=== PATIENT | female | born 1980 | race Caucasian/White ===

== ENCOUNTER 2017-09-13 15:43 | Emergency (ER) | payer OTHER ==
[~2017-09-13] VITALS: Ht 152.4 cm; Wt 69.4 kg
--- OUTSIDE RECORDS SUMMARY | ~2017-09-13 | XMS | Clinical Summary ---
Demographics + + + | Address | [address] | | | [place] [address] | + + + | Home Phone | | + + + | Preferred Language | Unknown | + + + | Marital Status | Single | + + + | Rastafari Affiliation | Unknown | + + + | Race | Unknown | + + + | Ethnic Group | Unknown | + + + Author + + + | Author | [facility] | | | and [place] | + + + | Organization | [facility] | | | and [place] | + + + | Address | Unknown | + + + | Phone | Unavailable | + + + Support + + +---------+ + | Name | Relationship | Address | Phone | + + +---------+ + | ASHLEY COOPER | ECON | Unknown | | + + +---------+ + Care Team Providers + +------+ + | Care Soft Iron Inspector Name | Role | Phone | + +------+ + PP | Unavailable | + +------+ + Allergies Not on File Current Medications Not on file Active Problems Not on file Social History + +-------+ +--------+------+ | Tobacco Use | Types | Packs/Day | Years | Date | | | | | Used | | + +-------+ +--------+------+ | Never Assessed | | | | | + +-------+ +--------+------+ + + + | Sex Assigned at | Date Recorded | | | | + + + | Not on file | | + + + Plan of Treatment + + + + + | Health Maintenance | Due Date | Last Done | Comments | + + + + + | Vaccine: | | | | | Dtap/Tdap/Td (1 - | 8 | | | | Tdap) | | | | + + + + + | CERVICAL CANCER | | | | | SCREENING (PAP EVERY | 0 | | | | 3 YEARS 21-64 ) | | | | + + + + + | Vaccine: Influenza | | | | | (Season Ended) | 8 | | | + + + + + Results Not on filefrom Last 3 Months"
--- OUTSIDE RECORDS SUMMARY | ~2017-09-13 | XMS | Clinical Summary ---
Demographics + + + | Address | [address] | | | [place] [address] | + + + | Home Phone | | + + + | Preferred Language | Unknown | + + + | Marital Status | Single | + + + | Methodist Affiliation | Unknown | + + + | Race | Unknown | + + + | Ethnic Group | Unknown | + + + Author + + + | Author | [facility] | | | and [place] | + + + | Organization | [facility] | | | and [place] | [...] Team Providers + +------+ + | Care Image Consultant Name | Role | Phone | + [...]
[~2017-09-13 15:43] MED LIST: PHENTERMINE HCL30 MG PO
[2017-09-13] MEDS ORDERED: PHENTERMINE H37.5 M1 PO (15:54)
--- NOTE | 2017-09-13 18:10 | EKG ---
[facility] [address] [place], [place] [address] Signed Sinus tachycardia Otherwise normal ECG Confirmed by JOS SCHOFIELD MD ([id number]) on 09/13/2017 6:09:52 PM Electronically Signed By: JOS SCHOFIELD MD 09/13/17 1810 PATIENT NAME: SALOMON CALIX [place] DELIA Electrocardiogram DATE OF : 76 PHYSICIAN: JOS SCHOFIELD MD REPORT #: [id number] REPORT IS CONFIDENTIAL AND NOT TO BE RELEASED WITHOUT AUTHORIZATION
== END 2017-09-13 17:47 | disposition home or self-care (01) ==
LOC: ED 15:43
DX: E86.0 Dehydration (principal); R00.0 Tachycardia, unspecified; F17.200 Nicotine dependence, unspecified, uncomplicated; Z91.018 Allergy to other foods; Z88.5 Allergy status to narcotic agent; Z79.899 Other long term (current) drug therapy
CPT/HCPCS: 71045; 80053; 84443; 84703; 85025; 85379; 93005; 93010; 96360; 99284; J7030

== ENCOUNTER 2020-04-01 07:40 | Day surgery (SDC) | payer OTHER ==
[~2020-04-01] VITALS: Ht 152.4 cm; Wt 73.0 kg
[~2020-04-01 07:40] MED LIST changes: +PHENTERMINE H37.5 M1 PO
[2020-04-01] MEDS ORDERED: VITAMIN D21250 MCG (07:53)
--- NOTE | 2020-04-01 10:31 | OR ---
[facility] [address] [place], [place] [address] Signed DATE OF OPERATION: 04/01/2020 SURGEON: Sue Bush MD PREOPERATIVE DIAGNOSIS: Chronic diarrhea. POSTOPERATIVE DIAGNOSIS: Minimal sigmoid diverticulosis. PROCEDURE: Colonoscopy with random cold biopsies. ESTIMATED BLOOD LOSS: None. 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 Apparently, she is headed for hysterectomy soon. She has been describing diarrhea at least 11 years now since her son was born. She said the stool is generally loose, but it can be watery at times. She talks about pain deep in her pelvis. The pain is intermittent. The blood work and her stool studies have all come back negative with her primary care provider. She has been through a recent pelvic exam as well as a pelvic ultrasound. She said they were fine. In the end, there were some concerns she could have irritable bowel syndrome. There was also question whether or not she might have diverticulitis. Consequently, she was asked to see me for a colonoscopy. She told me there is no family history of colon cancer or polyps. I had met with Monalisa in the office and I gave her a pamphlet on colonoscopy. We had discussed the nature of the test along with the risks including, but not limited to gas bloating, crampy abdominal pain, bleeding, perforation requiring surgery, and missed diagnosis. We also discussed the need for IV conscious sedation. She had expressed understanding and wished to proceed. PROCEDURE NOTE: Monalisa was taken into our endoscopy suite and placed in the left lateral decubitus position. She was given a total of 7 mg of Versed and 125 mcg of fentanyl. A digital rectal exam was performed and this was unremarkable. The adult colonoscope was introduced and advanced all around into the cecum under direct visualization of camera without difficulty. We could easily see the appendiceal orifice and the ileocecal valve. Her prep was quite excellent. She had no inflammatory changes throughout her Electronically Signed By: SUE BUSH MD 04/01/20 1031 PATIENT NAME: MONALISA BARILLAS OPERATIVE REPORT DATE OF : 76 REPORT #: [id number] PHYSICIAN: SUE BUSH MD PCP: NACHO NOBLES MD REPORT IS CONFIDENTIAL AND NOT TO BE RELEASED WITHOUT AUTHORIZATION [address] [address] Signed entire colon. There were no polyps. We took several random biopsies throughout the colon for pathologic review due the history of diarrhea. She also has some diverticula in the sigmoid colon. They were moderate in size, few in number, and scattered about. The rectum itself was unremarkable. Upon retroflexion of the scope, there was no additional pathology noted above the anal canal. After this, the gas was suctioned out and colonoscope removed. Monalisa tolerated the procedure quite well. RECOMMENDATIONS: I will see Monalisa back in my office in 7 to 14 days to review her biopsy results. Sue Bush MD ALB/MODL /[id number] cc: MD Deyanira Holguin MD Russell Barr Harrison, MD Copies: SUE BUSH MD, PATRICIA J MD HARRISON, RUSSELL BARR MD ~ Electronically Signed By: SUE BUSH MD 04/01/20 1031 PATIENT NAME: MONALISA BARILLAS [place] DELIA OPERATIVE REPORT DATE OF : 76 REPORT #: [id number] PHYSICIAN: SUE BUSH MD PCP: NACHO NOBLES MD REPORT IS CONFIDENTIAL AND NOT TO BE RELEASED WITHOUT AUTHORIZATION
--- NOTE | 2020-04-01 10:49 | NUR ---
PT ALERT, ORIENTED AND HERE FOR HER FIRST SCOPE. PT DEALT WITH PREP WELL, HOPES TODAY WILL BE PRODUCTIVE FOR HER HEALTHCARE. ALL QUESTIONS ASKED ANSWERED, PT REQUESTED PRAYER, WILL FOLLOW
--- NOTE | 2020-04-01 12:13 | NUR ---
04/01/20 1213 Griffith,Shital Godinez 0940: PATIENT ARRIVED TO PACU AWAKE AND ASKING QUESTIONS. DENIES PAIN. 1000: DISCHARGE INSTRUCTIONS GIVEN TO PATIENT. ASSISTED PATIENT TO SIT AT BEDSIDE. IV DC'D WNL. TIP INTACT. DRESSING APPLIED. STAND BY ASSIST WHILE PATIENT STOOD AT BEDSIDE. NO C/O DIZZINESS. PATIENT GETTING DRESSED. 1020: PATIENT DISCHARGED TO HOME VIA WHEELCHAIR WITH .
--- NOTE | 2020-04-05 16:48 | PATH ---
[facility] [address] [place], [place] [address] Signed SPECIMEN(S): A COLON BIOPSY SPECIMEN SOURCE: A. COLON BIOPSY CLINICAL HISTORY: Pre-op: Diarrhea. Post-op: Diverticulosis. MICROSCOPIC DESCRIPTION: Histologic sections of all submitted blocks are examined by light microscopy. These findings, together with the gross examination, support the pathologic diagnosis. FINAL PATHOLOGIC DIAGNOSIS: Colon, biopsy: - Fragments of colonic mucosa with no histopathologic abnormality. - Negative for active, chronic, or microscopic colitis. - Negative for dysplasia or malignancy. NAL:cml:C2NR GROSS DESCRIPTION: The specimen, labeled "Monalisa Blas, #1," and designated on the requisition "colon biopsy random," is received in formalin and consists of three cuevas soft tissue fragments that measure 0.4-0.5 cm in greatest dimension. The specimen is entirely submitted in cassette (A1). FB (under the direct supervision of a pathologist) The Gross Description was prepared using a voice recognition system. The report was reviewed for accuracy; however, sound-alike word errors, addition and/or deletions may occur. If there is any question about this report, please contact Client Services. PERFORMING LABORATORY: The technical component was performed by [facility], [address] [place] [id number] (Director Dietetics Department: Blanka Moura MD; CLIA# [id number]). [facility], [address] [address] (CLIA# [id number]). Diagnostician: Debi Moreno MD Pathologist Electronically Signed 04/05/2020 PATIENT NAME: MONALISA BARILLAS PATHOLOGY DATE OF : 76 REPORT #: [id number] PHYSICIAN: [facility] PCP: NACHO NOBLES MD REPORT IS CONFIDENTIAL AND NOT TO BE RELEASED WITHOUT AUTHORIZATION [address] [address] Signed Copies: ~ PATIENT NAME: MONALISA BARILLAS PATHOLOGY DATE OF : 76 REPORT #: [id number] PHYSICIAN: [facility] PCP: NACHO NOBLES MD REPORT IS CONFIDENTIAL AND NOT TO BE RELEASED WITHOUT AUTHORIZATION
== END 2020-04-01 10:20 | disposition home or self-care (01) ==
LOC: DS 07:40 → OPS 07:40 → DS 09:00 → OPS 09:00
PROVIDERS: ATTEND Colon & Rectal Surgery
PROC: 0DBE8ZX Excision of Large Intestine, Via Natural or Artificial Opening Endoscopic, Diagnostic (ICD-10-PCS; principal; 2020-04-01 09:00)
DX: K57.30 Diverticulosis of large intestine without perforation or abscess without bleeding (principal); K21.9 Gastro-esophageal reflux disease without esophagitis; F17.210 Nicotine dependence, cigarettes, uncomplicated; Z79.899 Other long term (current) drug therapy; Z91.018 Allergy to other foods; Z88.5 Allergy status to narcotic agent
CPT/HCPCS: 84703; G0500; J2250; J3010; J7121